=== PATIENT | male | born 1945 | race Caucasian/White ===

== ENCOUNTER 2019-02-06 21:23 | Emergency (ER) | payer MEDICARE ==
[~2019-02-06] VITALS: Ht 188 cm; Wt 106.8 kg
[2019-02-06 21:28] VITALS: Ht 188 cm; Wt 106.8 kg
[2019-02-06] MEDS ORDERED: VITAMIN D31000 UNI2 PO (21:30)
[2019-02-06] MEDS ORDERED: OMEPRAZOLE20 M1 PO (21:31)
[2019-02-06] MEDS ORDERED: GLUCOPHAGE1000 MG PO (21:31)
[2019-02-06] MEDS ORDERED: ZOVIRAX200 MG PO (21:31)
[2019-02-06] MEDS ORDERED: LISINOPRIL2.5 MG PO (21:32)
[2019-02-06] MEDS ORDERED: NOVOLOG100 UNIT/1 SC (21:33)
[2019-02-06] MEDS ORDERED: FLOMAX0.4 MG PO (21:33)
[2019-02-06] MEDS ORDERED: OPTIVE SENSITI1 EACH EACH EYE (21:34)
[2019-02-06] MEDS ORDERED: LYRICA100 MG PO (21:34)
[2019-02-06] MEDS ORDERED: NASACORT10.8 ML NASAL (21:35)
[2019-02-06] MEDS ORDERED: LIPITOR80 MG PO (21:35)
[2019-02-06] MEDS ORDERED: PLAVIX75 MG PO (21:36)
[2019-02-06] MEDS ORDERED: LOW DOSE ASPIRI81 M1 PO (21:36)
[2019-02-06] MEDS ORDERED: MULTI-DAY VITAM1 TAB PO (21:37)
[2019-02-06 23:34] LABS: BASOPHILS 0.7 % (0-2); EOSINOPHILS 4.1 % (0-7); HEMATOCRIT 41.1 % (42.0-54.0); HEMOGLOBIN 13.7 g/dL (13.5-17.5); IMMATURE GRANULOCYTES 0.2 % (0-5); LYMPHOCYTES 43.5 % (15-50); MCH 31.7 pg (26.0-34.0); MCHC 33.3 g/dL (31.0-37.0); MCV 95.1 fL (80.0-100.0); MEAN PLATELET VOLUME 9.2 fL (7.4-10.4); MONOCYTES 9.2 % (2-11); NEUTROPHILS 42.3 % (40-80); PLATELET COUNT 279 10x3/uL (130-400); RBC 4.32 10x6/uL (4.20-6.10); WBC 8.1 10x3/uL (4.8-10.8)
[2019-02-06 23:43] LABS: CALC OSMOLALITY 280 mosm/kg (275-300); CARBON DIOXIDE 28.9 mmol/L (21.0-32.0); CHLORIDE - SERUM 103 mmol/L (98-107); CREATININE - SERUM 0.8 mg/dL (0.6-1.3); GLUCOSE 166 mg/dL (74-106); POTASSIUM - SERUM 3.7 mmol/L (3.5-5.1); SODIUM 139 mmol/L (136-145); UREA NITROGEN 9 mg/dL (7-18); eGFR NON AFRICAN AMERICAN > 90 mL/min (90-120)
[2019-02-06 23:44] LABS: APTT 29.6 SECONDS (22.8-39.4); INR 1.02 (0.85-1.17); PROTIME 12.9 SECONDS (11.6-15.0)
[2019-02-06 23:58] LABS: ALBUMIN 3.4 g/dL (3.4-5.0); ALKALINE PHOSPHATASE 46 U/L (46-116); ALT (SGPT) 44 U/L (10-68); CKMB 2.1 U/L (0.0-3.6); CREATINE KINASE 115 UL (21-232); MAGNESIUM - SERUM 1.5 mg/dL (1.8-2.4); PROTEIN - SERUM 6.9 g/dL (6.4-8.2); THYROID STIMULATING HORMONE 4.61 uIU/mL (0.36-3.74)
[2019-02-07] LABS: TROPONIN-I < 0.017 ng/mL (0.000-0.060)
[2019-02-07 02:24] VITALS: BP 124/83
== END 2019-02-07 03:00 | disposition short-term general hospital (02) ==
LOC: D.ER 21:23
PROVIDERS: Family Medicine
DX: G45.9 Transient cerebral ischemic attack, unspecified (principal); R51 Headache; R47.89 Other speech disturbances; E11.40 Type 2 diabetes mellitus with diabetic neuropathy, unspecified; Z79.84 Long term (current) use of oral hypoglycemic drugs; I10 Essential (primary) hypertension; Z86.73 Personal history of transient ischemic attack (TIA), and cerebral infarction without residual deficits

== ENCOUNTER 2019-03-15 18:21 | Emergency (ER) | payer OTHER ==
[~2019-03-15] VITALS: Ht 188 cm; Wt 97.7 kg
[~2019-03-15 18:21] MED LIST: FLOMAX0.4 MG PO; GLUCOPHAGE1000 MG PO; LIPITOR80 MG PO; LISINOPRIL2.5 MG PO; LOW DOSE ASPIRI81 M1 PO; LYRICA100 MG PO; MULTI-DAY VITAM1 TAB PO; NASACORT10.8 ML NASAL; NOVOLOG100 UNIT/1 SC; OMEPRAZOLE20 M1 PO; OPTIVE SENSITI1 EACH EACH EYE; PLAVIX75 MG PO; VITAMIN D31000 UNI2 PO; ZOVIRAX200 MG PO
[2019-03-15 18:29] VITALS: Ht 188 cm; Wt 97.7 kg
[2019-03-15 19:02] LABS: BASOPHILS 0.6 % (0-2); EOSINOPHILS 4.1 % (0-7); HEMATOCRIT 40.7 % (42.0-54.0); HEMOGLOBIN 13.7 g/dL (13.5-17.5); IMMATURE GRANULOCYTES 0.3 % (0-5); LYMPHOCYTES 36.7 % (15-50); MCH 31.8 pg (26.0-34.0); MCHC 33.7 g/dL (31.0-37.0); MCV 94.4 fL (80.0-100.0); MEAN PLATELET VOLUME 9.3 fL (7.4-10.4); MONOCYTES 9.2 % (2-11); NEUTROPHILS 49.1 % (40-80); PLATELET COUNT 314 10x3/uL (130-400); RBC 4.31 10x6/uL (4.20-6.10); WBC 9.4 10x3/uL (4.8-10.8)
[2019-03-15 19:11] LABS: CALC OSMOLALITY 278 mosm/kg (275-300); CALCIUM 8.8 mg/dL (8.5-10.1); CARBON DIOXIDE 30.8 mmol/L (21.0-32.0); CHLORIDE - SERUM 99 mmol/L (98-107); CREATININE - SERUM 0.9 mg/dL (0.6-1.3); SODIUM 137 mmol/L (136-145); UREA NITROGEN 7 mg/dL (7-18); eGFR NON AFRICAN AMERICAN 88 mL/min (90-120)
[2019-03-15 19:12] LABS: GLUCOSE 221 mg/dL (74-106)
[2019-03-15 19:16] LABS: APTT 30.6 SECONDS (22.8-39.4); INR 1.02 (0.85-1.17); PROTIME 12.9 SECONDS (11.6-15.0)
[2019-03-15 19:26] LABS: ALBUMIN 3.6 g/dL (3.4-5.0); ALKALINE PHOSPHATASE 54 U/L (46-116); ALT (SGPT) 53 U/L (10-68); BILIRUBIN - TOTAL 0.35 mg/dL (0.2-1.3); CKMB 2.6 U/L (0.0-3.6); CREATINE KINASE 118 UL (21-232); MAGNESIUM - SERUM 1.4 mg/dL (1.8-2.4); TROPONIN-I < 0.017 ng/mL (0.000-0.060)
[2019-03-15 23:32] VITALS: BP 135/91
== END 2019-03-15 23:34 | disposition other institution (70) ==
LOC: D.ER 18:21
PROVIDERS: Emergency Medicine
DX: R53.1 Weakness (principal); Z86.73 Personal history of transient ischemic attack (TIA), and cerebral infarction without residual deficits; E83.42 Hypomagnesemia; E11.40 Type 2 diabetes mellitus with diabetic neuropathy, unspecified; I10 Essential (primary) hypertension; Z79.84 Long term (current) use of oral hypoglycemic drugs; Z79.4 Long term (current) use of insulin

== ENCOUNTER 2019-11-27 13:16 | Emergency (ER) | payer OTHER ==
[~2019-11-27] VITALS: Ht 188 cm; Wt 106.8 kg
[2019-11-27 13:28] VITALS: Ht 188 cm; Wt 106.8 kg
[2019-11-27 13:46] LABS: BASOPHILS 0.5 % (0-2); EOSINOPHILS 2.6 % (0-7); HEMATOCRIT 40.8 % (42.0-54.0); HEMOGLOBIN 13.6 g/dL (13.5-17.5); IMMATURE GRANULOCYTES 0.2 % (0-5); LYMPHOCYTES 25.6 % (15-50); MCH 31.2 pg (26.0-34.0); MCHC 33.3 g/dL (31.0-37.0); MCV 93.6 fL (80.0-100.0); MEAN PLATELET VOLUME 8.7 fL (7.4-10.4); MONOCYTES 10.3 % (2-11); NEUTROPHILS 60.8 % (40-80); RBC 4.36 10x6/uL (4.20-6.10); RDW 12.1 % (11.5-14.5); WBC 8.6 10x3/uL (4.8-10.8)
[2019-11-27 13:50] LABS: PLATELET COUNT 390 10x3/uL (130-400)
[2019-11-27 13:53] LABS: CALC OSMOLALITY 280 mosm/kg (275-300); CALCIUM 9.3 mg/dL (8.5-10.1); CARBON DIOXIDE 31.4 mmol/L (21.0-32.0); CHLORIDE - SERUM 100 mmol/L (98-107); GLUCOSE 248 mg/dL (74-106); POTASSIUM - SERUM 4.3 mmol/L (3.5-5.1); SODIUM 137 mmol/L (136-145); UREA NITROGEN 9 mg/dL (7-18); eGFR NON AFRICAN AMERICAN 78 mL/min (90-120)
[2019-11-27 14:10] LABS: ALBUMIN 3.6 g/dL (3.4-5.0); ALKALINE PHOSPHATASE 75 U/L (30-120); ALT (SGPT) 179 U/L (10-68); BILIRUBIN - TOTAL 0.34 mg/dL (0.2-1.3); CKMB 1.9 U/L (0.0-3.6); CREATINE KINASE 78 UL (21-232); PROTEIN - SERUM 7.3 g/dL (6.4-8.2); TROPONIN-I < 0.017 ng/mL (0.000-0.060)
[2019-11-27] MEDS ORDERED: FLUTICASONE PRO16 GM NASAL (14:57)
[2019-11-27] MEDS ORDERED: CLINDAMYCIN HC300 MG PO (14:57)
[2019-11-27 15:27] VITALS: BP 122/70
== END 2019-11-27 15:28 | disposition home or self-care (01) ==
LOC: D.ER 13:16
PROVIDERS: Family Medicine
DX: J01.90 Acute sinusitis, unspecified (principal); E11.9 Type 2 diabetes mellitus without complications; I10 Essential (primary) hypertension; K21.9 Gastro-esophageal reflux disease without esophagitis; R05 Cough

== ENCOUNTER 2019-11-27 18:25 | Emergency (ER) | payer OTHER ==
[~2019-11-27] VITALS: Ht 188 cm; Wt 106.8 kg
[~2019-11-27 18:25] MED LIST changes: +CLINDAMYCIN HC300 MG PO; +FLUTICASONE PRO16 GM NASAL
[2019-11-27 18:27] VITALS: Ht 188 cm; Wt 106.8 kg
[2019-11-27 19:19] LABS: BASOPHILS 0.4 % (0-2); EOSINOPHILS 1.1 % (0-7); HEMATOCRIT 41.9 % (42.0-54.0); IMMATURE GRANULOCYTES 0.3 % (0-5); LYMPHOCYTES 10.5 % (15-50); MCH 31.1 pg (26.0-34.0); MCHC 33.4 g/dL (31.0-37.0); MCV 93.1 fL (80.0-100.0); MONOCYTES 10.7 % (2-11); PLATELET COUNT 398 10x3/uL (130-400); RDW 12.2 % (11.5-14.5); WBC 9.9 10x3/uL (4.8-10.8)
[2019-11-27 19:33] LABS: CALC OSMOLALITY 275 mosm/kg (275-300); CALCIUM 9.4 mg/dL (8.5-10.1); CARBON DIOXIDE 26.5 mmol/L (21.0-32.0); CHLORIDE - SERUM 99 mmol/L (98-107); CREATININE - SERUM 1.2 mg/dL (0.6-1.3); GLUCOSE 201 mg/dL (74-106); POTASSIUM - SERUM 3.8 mmol/L (3.5-5.1); SODIUM 135 mmol/L (136-145); eGFR NON AFRICAN AMERICAN 63 mL/min (90-120)
[2019-11-27 19:37] LABS: UREA NITROGEN 13 mg/dL (7-18)
[2019-11-27 19:51] LABS: ALBUMIN 3.6 g/dL (3.4-5.0); ALKALINE PHOSPHATASE 51 U/L (30-120); ALT (SGPT) 160 U/L (10-68); BILIRUBIN - TOTAL 0.56 mg/dL (0.2-1.3); C-REACTIVE PROTEIN 1.4 mg/dL (0.0-0.9); CKMB 1.1 U/L (0.0-3.6); CREATINE KINASE 80 UL (21-232); FERRITIN 150 ng/mL (3-244); MAGNESIUM - SERUM 1.2 mg/dL (1.8-2.4); PROTEIN - SERUM 7.4 g/dL (6.4-8.2); TROPONIN-I < 0.017 ng/mL (0.000-0.060)
[2019-11-27 19:55] LABS: APTT 24.7 SECONDS (22.8-39.4); INR 1.02 (0.85-1.17); PROTIME 13.4 SECONDS (11.6-15.0)
[2019-11-27 22:58] LABS: BILIRUBIN NEGATIVE (NEGATIVE); KETONE NEGATIVE (NEGATIVE); NITRITE NEGATIVE (NEGATIVE); UROBILINOGEN NORMAL mg/dL (< 2)
[2019-11-27 23:11] LABS: UDS - AMPHET NEGATIVE QUAL (NEGATIVE); UDS - BARB NEGATIVE QUAL (NEGATIVE); UDS - BENZO NEGATIVE QUAL (NEGATIVE); UDS - COCAINE NEGATIVE QUAL (NEGATIVE); UDS - OPIATE NEGATIVE QUAL (NEGATIVE); UDS - PCP NEGATIVE QUAL (NEGATIVE); UDS - THC NEGATIVE QUAL (NEGATIVE)
[2019-11-27 23:58] VITALS: BP 143/73
== END 2019-11-27 23:58 | disposition home or self-care (01) ==
LOC: D.ER 18:25
PROVIDERS: Family Medicine
DX: J32.9 Chronic sinusitis, unspecified (principal); B34.9 Viral infection, unspecified; E11.9 Type 2 diabetes mellitus without complications; I10 Essential (primary) hypertension; K21.9 Gastro-esophageal reflux disease without esophagitis

== ENCOUNTER 2019-11-29 09:32 | Emergency (ER) | payer OTHER ==
[~2019-11-29] VITALS: Ht 188 cm; Wt 106.8 kg
[2019-11-29 09:38] VITALS: Ht 188 cm; Wt 106.8 kg
[2019-11-29 10:24] LABS: BASOPHILS 0.2 % (0-2); HEMATOCRIT 39.6 % (42.0-54.0); HEMOGLOBIN 13.1 g/dL (13.5-17.5); IMMATURE GRANULOCYTES 0.6 % (0-5); MCH 30.9 pg (26.0-34.0); MCHC 33.1 g/dL (31.0-37.0); MCV 93.4 fL (80.0-100.0); MEAN PLATELET VOLUME 8.9 fL (7.4-10.4); MONOCYTES 12.7 % (2-11); NEUTROPHILS 72.5 % (40-80); PLATELET COUNT 351 10x3/uL (130-400); RBC 4.24 10x6/uL (4.20-6.10); RDW 12.4 % (11.5-14.5)
[2019-11-29 10:36] LABS: CALC OSMOLALITY 273 mosm/kg (275-300); CALCIUM 8.8 mg/dL (8.5-10.1); CARBON DIOXIDE 26.8 mmol/L (21.0-32.0); CHLORIDE - SERUM 96 mmol/L (98-107); GLUCOSE 246 mg/dL (74-106); INR 1.06 (0.85-1.17); POTASSIUM - SERUM 3.8 mmol/L (3.5-5.1); PROTIME 13.7 SECONDS (11.6-15.0); SODIUM 133 mmol/L (136-145); UREA NITROGEN 12 mg/dL (7-18); eGFR NON AFRICAN AMERICAN 78 mL/min (90-120)
[2019-11-29 10:52] LABS: ALBUMIN 3.3 g/dL (3.4-5.0); ALKALINE PHOSPHATASE 29 U/L (30-120); AMYLASE - SERUM 12 U/L (25-115); BILIRUBIN - TOTAL 0.71 mg/dL (0.2-1.3); C-REACTIVE PROTEIN 14.7 mg/dL (0.0-0.9); PROTEIN - SERUM 7.1 g/dL (6.4-8.2); THYROID STIMULATING HORMONE 0.64 uIU/mL (0.36-3.74); TROPONIN-I < 0.017 ng/mL (0.000-0.060)
[2019-11-29 10:54] LABS: ALT (SGPT) 108 U/L (10-68); CREATINE KINASE 310 UL (21-232); LIPASE 34 U/L (73-393)
[2019-11-29 10:56] LABS: BILIRUBIN NEGATIVE (NEGATIVE); KETONE LARGE mg/dL (NEGATIVE); NITRITE NEGATIVE (NEGATIVE); UROBILINOGEN NORMAL mg/dL (< 2)
[2019-11-29 15:53] VITALS: BP 133/72
== END 2019-11-29 15:55 | disposition other institution (70) ==
LOC: D.ER 09:32
PROVIDERS: Family Medicine
DX: D72.829 Elevated white blood cell count, unspecified (principal); R06.00 Dyspnea, unspecified; E11.65 Type 2 diabetes mellitus with hyperglycemia; E87.1 Hypo-osmolality and hyponatremia; R53.81 Other malaise; R53.83 Other fatigue; I10 Essential (primary) hypertension; K21.9 Gastro-esophageal reflux disease without esophagitis